=== PATIENT | female | born 1945 | race Caucasian/White ===

== ENCOUNTER 2017-08-29 22:01 | Emergency (ER) | payer MEDICARE, BC ==
[2017-08-29 22:21] VITALS: BP 163/91
--- NOTE | 2017-08-29 22:28 | EDM.PDOC ---
ED HPI GENERAL MEDICAL PROBLEM - General Chief Complaint: Neurological Problem Stated Complaint: APPROX 6 HOURS ALTERED MENTAL STATUS Time Seen by Provider: 08/29/17 22:05 Source of Information: Reports: Patient, Family History Limitations: Reports: Altered Mental Status - History of Present Illness INITIAL COMMENTS - FREE TEXT/NARRATIVE: This is a 71-year-old female. She comes tonight because she had an episode today starting around 3:30 PM of altered mental status. The story I believe starts on where she had an episode of feeling like there was something on the left side of her adventist area and she became somewhat sick with nausea and vomiting and vomited multiple times on and felt real bad and had a mild headache. She seemed to clear up though she was very weak on Thursday. Then today around 3:30 PM the daughter received a text message from her that was all jumbled and she couldn't understand it. The daughter lives next door so she went over to see her mother. When she got there the mother was not coherent though she was moving all 4 extremities. The daughter states she was not herself was very argumentative. According to the daughter she was disoriented to time to place. She thought she was in school and had been working all day but she is retired. Daughter noted that the patient's right pupil was dilated during this time but is back to normal. The daughter stated that she was not able to follow commands could not thermometer maker her fingers when asked to do so. But she was moving her hands and arms as she desired just could not follow commands. The daughter called the ambulance and they arrived but the patient refused to come to the ER by ambulance and refused to come to the ER period. Her blood pressure at that time was 140/86. Around 8:30 PM the patient began to act more her normal self and then was persuaded by her daughter to come to the ER. She walked into the ER without difficulty has no problems with her balance. The patient is conversational and is pleasant and she is cooperative and she is able to follow commands. With our conversation with the daughter at the bedside the patient still is not having complete comprehension of the conversation though she is markedly better according to the daughter than she was. The patient appears to be without distress and she does not remember this episode this afternoon. Patient's initial NIH score was 4. The patient takes a baby aspirin daily. Left Head Pain Score (Numeric/FACES): 1 - Related Data Allergies Allergy/AdvReac Type Severity Reaction Status Date / Time risedronate sodium Allergy Pain Verified 08/29/17 22:23 [From Actonel] Home Meds: Home Meds Allopurinol [Zyloprim] 0.5 tab PO DAILY 11/27/14 [History] Aspirin [Halfprin] 81 mg PO DAILY 11/27/14 [History] Calcium Carbonate/Vitamin D3 [Calcium 600-Vit D3 400 Tablet] 2 tab PO DAILY 11/08 [History] Levothyroxine 75 mcg PO DAILY 11/27/14 [History] Meloxicam [Mobic] 1 - 2 tab PO DAILY 11/27/14 [History] Multivitamin [Multi-Vitamin Daily] 1 tab PO DAILY 11/27/14 [History] Omeprazole 20 mg PO DAILY 11/27/14 [History] Potassium Chloride [Klor-Con 10] 10 meq PO DAILY 11/27/14 [History] Simvastatin 20 mg PO BEDTIME 11/27/14 [History] Triamterene/Hydrochlorothiazid [Triamterene-HCTZ 37.5-25 MG] 37.5 tab PO DAILY 11/27/14 [History] Ubidecarenone [Coenzyme Q10] 1 tab PO DAILY 11/27/14 [History] Past Medical History Cardiovascular History: Reports: High Cholesterol, Hypertension Respiratory History: Reports: None Gastrointestinal History: Reports: GERD Musculoskeletal History: Reports: Gout, Osteoarthritis Endocrine/Metabolic History: Reports: Hypothyroidism, Obesity/BMI 30+ - Past Surgical History GI Surgical History: Reports: Cholecystectomy, Colonoscopy Social & Family History - Tobacco Use Smoking Status *Q: Former Smoker (smoked 10 years when younger) Month Tobacco Last Used: 1978 Second Hand Smoke Exposure: No - Alcohol Use Days Per Week of Alcohol Use: 0 (occasional wine) Number of Drinks Per Day: 0 Total Drinks Per Week: 0 - Recreational Drug Use Recreational Drug Use: No Drug Use in Last 12 Months: No ED ROS GENERAL - Review of Systems Review Of Systems: See Below Constitutional: Denies: Fever, Chills HEENT: Denies: Ear Pain, Rhinitis, Sinus Problem, Throat Pain, Throat Swelling Respiratory: Denies: Shortness of Breath, Cough Cardiovascular: Denies: Chest Pain Endocrine: Reports: No Symptoms GI/Abdominal: Denies: Abdominal Pain, Diarrhea, Nausea, Vomiting : Reports: No Symptoms Musculoskeletal: Reports: No Symptoms Skin: Reports: No Symptoms Neurological: Reports: Confusion, Trouble Speaking. Denies: Dizziness, Headache , Numbness, Paresthesia Psychiatric: Reports: Agitation Hematologic/Lymphatic: Reports: No Symptoms ED EXAM, NEURO - Physical Exam Exam: See Below Exam Limited By: No Limitations General Appearance: Alert, WD/WN, No Apparent Distress Eye Exam: Bilateral Eye: Abnormal Pupil, Normal Inspection, PERRL Ears: Normal External Exam, Normal Canal, Normal TMs Nose: Normal Inspection Throat/Mouth: Normal Inspection, Normal Lips, Normal Voice, No Airway Compromise Head Exam: Normocephalic Neck: Supple, Full Range of Motion. No: Carotid Bruit Respiratory/Chest: No Respiratory Distress, Lungs Clear, Normal Breath Sounds Cardiovascular: Regular Rate, Rhythm, No Murmur GI/Abdominal: Soft, Non-Tender Neurological: Alert, Normal Mood/Affect, Normal Gait, Other (Patient appears to have a mild receptive aphasia where she has a difficult time understanding some things and following commands, she will finally get the chest of which one done and she will do it then but it takes her a moment or 2 to understand water trying to say, her neurologic exam seemed to improve as she was here to the point where she was acting almost normal according to the daughter, she still had some mild difficulty and tracking conversations and keeping up, at no time did she have any arm or leg weakness or any sensation deficits). No: Babinski, Difficulty Walking Back Exam: Full Range of Motion Extremities: Normal Inspection, Normal Range of Motion Psychiatric: Normal Affect, Normal Mood Skin Exam: Warm, Dry EKG INTERPRETATION EKG Date: 08/29/17 Time: 20:23 EKG Interpretation Comments: EKG shows a normal sinus rhythm with no acute ST or T-wave changes. There are considered to be Q waves in the anterior lateral leads suggesting a possible old [place] in the past there is no ischemia noted. Course - Vital Signs Last Recorded V/S: Last Vital Signs Temp 97.5 F 08/29/17 22:07 Pulse 72 08/29/17 22:07 Resp 14 08/29/17 22:07 BP 163/91 H 08/29/17 22:07 Pulse Ox 97 08/29/17 22:07 - Orders/Labs/Meds Orders: Active Orders 24 hr Category Date Time Status NIH Stroke Scale [RC] ASDIRECTED Care 08/29/17 22:29 Active Chest 2V [CR] Stat Exams 08/29/17 22:30 Taken Head wo Cont [CT] Stat Exams 08/29/17 22:28 Taken Labs: Laboratory Tests 08/29/17 08/29/17 08/29/17 Range/Units 22:17 22:19 22:19 WBC 7.17 (3.98-10.04) K/mm3 RBC 4.58 (3.98-5.22) M/mm3 Hgb 14.4 (11.2-15.7) gm/L Hct 43.6 (34.1-44.9) % MCV 95.2 H (79.4-94.8) fl MCH 31.4 (25.6-32.2) pg MCHC 33.0 (32.2-35.5) g/dl RDW Std Deviation 45.8 (36.4-46.3) fL Plt Count 142 L (182-369) K/mm3 MPV 13.2 H (9.4-12.3) fl Neut % (Auto) 59.8 (34.0-71.1) % Lymph % (Auto) 26.1 (19.3-51.7) % [place] % (Auto) 12.0 (4.7-12.5) % Eos % (Auto) 1.4 (0.7-5.8) Baso % (Auto) 0.6 (0.1-1.2) % Neut # (Auto) 4.29 (1.56-6.13) K/mm3 Lymph # (Auto) 1.87 (1.18-3.74) K/mm3 [place] # (Auto) 0.86 H (0.24-0.36) K/mm3 Eos # (Auto) 0.10 (0.04-0.36) K/mm3 Baso # (Auto) 0.04 (0.01-0.08) K/mm3 PT 11.3 (8.0-13.0) SECONDS INR 1.03 Sodium (136-145) mEq/L Potassium (3.5-5.1) mEq/L Chloride (98-107) mEq/L Carbon Dioxide (21-32) mEq/L Anion Gap (5-15) BUN (7-18) mg/dL Creatinine (0.55-1.02) mg/dL Est Cr Clr Drug Dosing mL/min Estimated GFR (MDRD) (>60) mL/min BUN/Creatinine Ratio (14-18) Glucose (83-115) mg/dL POC Glucose 98 (83-110) mg/dL Calcium (8.5-10.1) mg/dL Total Bilirubin (0.2-1.0) mg/dL AST (15-37) U/L ALT (14-59) U/L Alkaline Phosphatase (46-116) U/L Troponin I (0.00-0.056) ng/mL Total Protein (6.4-8.2) g/dl Albumin (3.4-5.0) g/dl Globulin gm/dL Albumin/Globulin Ratio (1-2) Urine Color (Yellow) Urine Appearance (Clear) Urine pH (5.0-8.0) Ur Specific [place] (1.005-1.030) Urine Protein (Negative) Urine Glucose (UA) (Negative) Urine Ketones (Negative) Urine Occult Blood (Negative) Urine Nitrite (Negative) Urine Bilirubin (Negative) Urine Urobilinogen (0.2-1.0) Ur Leukocyte Esterase (Negative) Urine RBC (0-5) /hpf Urine WBC (0-5) /hpf Ur Epithelial Cells (0-5) /hpf Urine Bacteria (FEW) /hpf Hyaline Casts (0-5) /lpf Urine Mucus (FEW) /hpf 08/29/17 08/29/17 Range/Units 22:19 23:58 WBC (3.98-10.04) K/mm3 RBC (3.98-5.22) M/mm3 Hgb (11.2-15.7) gm/L Hct (34.1-44.9) % MCV (79.4-94.8) fl MCH (25.6-32.2) pg MCHC (32.2-35.5) g/dl RDW Std Deviation (36.4-46.3) fL Plt Count (182-369) K/mm3 MPV (9.4-12.3) fl Neut % (Auto) (34.0-71.1) % Lymph % (Auto) (19.3-51.7) % [place] % (Auto) (4.7-12.5) % Eos % (Auto) (0.7-5.8) Baso % (Auto) (0.1-1.2) % Neut # (Auto) (1.56-6.13) K/mm3 Lymph # (Auto) (1.18-3.74) K/mm3 [place] # (Auto) (0.24-0.36) K/mm3 Eos # (Auto) (0.04-0.36) K/mm3 Baso # (Auto) (0.01-0.08) K/mm3 PT (8.0-13.0) SECONDS INR Sodium 140 (136-145) mEq/L Potassium 3.1 L (3.5-5.1) mEq/L Chloride 102 (98-107) mEq/L Carbon Dioxide 27 (21-32) mEq/L Anion Gap 14.1 (5-15) BUN 24 H (7-18) mg/dL Creatinine 1.2 H (0.55-1.02) mg/dL Est Cr Clr Drug Dosing 31.98 mL/min Estimated GFR (MDRD) 44 (>60) mL/min BUN/Creatinine Ratio 20.0 H (14-18) Glucose 101 (83-115) mg/dL POC Glucose (83-110) mg/dL Calcium 10.7 H (8.5-10.1) mg/dL Total Bilirubin 0.6 (0.2-1.0) mg/dL AST 21 (15-37) U/L ALT < 6 L (14-59) U/L Alkaline Phosphatase 96 (46-116) U/L Troponin I < 0.017 (0.00-0.056) ng/mL Total Protein 8.4 H (6.4-8.2) g/dl Albumin 3.8 (3.4-5.0) g/dl Globulin 4.6 gm/dL Albumin/Globulin Ratio 0.8 L (1-2) Urine Color Yellow (Yellow) Urine Appearance Clear (Clear) Urine pH 6.0 (5.0-8.0) Ur Specific [place] 1.025 (1.005-1.030) Urine Protein Negative (Negative) Urine Glucose (UA) Negative (Negative) Urine Ketones 1+ H (Negative) Urine Occult Blood Negative (Negative) Urine Nitrite Negative (Negative) Urine Bilirubin Negative (Negative) Urine Urobilinogen 0.2 (0.2-1.0) Ur Leukocyte Esterase Trace H (Negative) Urine RBC 0-5 (0-5) /hpf Urine WBC 5-10 H (0-5) /hpf Ur Epithelial Cells 0-5 (0-5) /hpf Urine Bacteria Few (FEW) /hpf Hyaline Casts 0-5 (0-5) /lpf Urine Mucus Moderate H (FEW) /hpf Meds: Medications Discontinued Medications Generic Name Dose Route Start Last Admin Trade Name Fina PRN Reason Stop Dose Admin Aspirin 81 mg 08/29/17 23:34 08/29/17 23:38 Aspirin PO 08/29/17 23:35 81 mg ONETIME ONE Administration Clopidogrel Bisulfate 75 mg 08/29/17 23:30 08/29/17 23:38 Plavix PO 08/29/17 23:31 75 mg ONETIME ONE Administration - Radiology Interpretation Free Text/Narrative:: CT scan of the head did not show any acute stroke or hemorrhage. It did show chronic small vessel disease.C - Re-Assessments/Exams Free Text/Narrative Re-Assessment/Exam: 08/29/17 23:40 Spoke to the family and the patient regarding the findings and her need to go to [facility] for additional workup and treatment. In the meantime we'll give her Plavix 75 mg and an additional baby aspirin as per Dr. Silva neurologist at [facility]. The family did request to go to [facility]. 08/29/17 23:49 Recheck of the patient reveals she still has a mild receptive aphasia. She is able to verbalize without difficulty and has clear speech. She moves all 4 extremities without difficulty. It appears that the only residual is that receptive aphasia thus giving her a diagnosis of a cerebrovascular accident. Please note that prior to leaving the ER she was almost back to normal according to her daughter who was been with her this entire time. The patient still has a slight difficulty in tracking conversation and keeping up with understanding. When I told her it would be sending her to [facility] in [place] and asked her if she understood why she gave me a blank look but is I explained to her her symptoms and that we thought she had a stroke she then put that together to understand asked why she was going to [facility] because they could take care of her. Departure - Departure Time of Disposition: 23:49 Disposition: DC/Tfer to Acute Hospital 02 Condition: Fair Clinical Impression: Receptive aphasia Cerebrovascular accident Qualifiers: CVA mechanism: occlusion Precerebral and cerebral artery: unspecified cerebral artery Qualified Code(s): I63.50 - Cerebral infarction due to unspecified occlusion or stenosis of unspecified cerebral artery - Discharge Information Forms: ED Department Discharge Additional Instructions: I spoke to the neurologist Dr. Silva and the hospitalist Dr. Goldman and they will accept the patient in transport to [facility] in [place] for further evaluation and treatment. ED Communication - ED Communication Date/Time Date: 08/29/17 Time Called: 23:47 - Discussed Case With (1) Discussed Case With (1): Admitting Provider Person/s Notified (1): Dr. Silva (Accepts in transport to [facility]) Person/s Notified (2): Dr. Goldman (Accepts in transport to [facility]) - My Orders Last 24 Hours: My Active Orders 08/29/17 22:28 Head wo Cont [CT] Stat 08/29/17 22:29 NIH Stroke Scale [RC] ASDIRECTED 08/29/17 22:30 Chest 2V [CR] Stat - Assessment/Plan Last 24 Hours: My Active Orders 08/29/17 22:28 Head wo Cont [CT] Stat 08/29/17 22:29 NIH Stroke Scale [RC] ASDIRECTED 08/29/17 22:30 Chest 2V [CR] Stat
[2017-08-29] MEDS ORDERED: Clopidogrel 75 MG Tab PO ONE (23:30)
[2017-08-29] MEDS ORDERED: Aspirin 81 MG Tab.Chew PO ONE (23:34)
--- NOTE | 2017-08-30 08:58 | CR ---
Chest: Two views of the chest were obtained. Comparison: No prior chest x-ray. Heart size is normal. Tortuous thoracic aorta is seen. Small hiatal hernia appears to be present. Lungs are clear. Compression deformities are noted within the mid and lower thoracic spine. Scattered degenerative change is noted. Osteopenia is present. Surgical clips are noted from prior cholecystectomy. Impression: 1. Findings as noted above. Nothing acute is seen. Diagnostic code #2
--- NOTE | 2017-08-30 08:58 | CT ---
Head CT Technique: Multiple axial sections through the brain were obtained. Intravenous contrast was not utilized. Comparison: No previous intracranial imaging. Findings: Ventricles along the basal cisterns and sulci over the convexities are mildly prominent. Diminished density is noted within portions of the periventricular and subcortical white matter which is compatible with small vessel ischemic demyelination change. No other abnormal parenchymal densities are seen. No evidence of intracranial hemorrhage. No midline shift or mass effect is seen. Bone window settings were reviewed which show the visualized sinuses to appear clear. No acute calvarial abnormality is identified. Impression: 1. Mild senescent change as noted above. No acute intracranial abnormality is identified on noncontrast head CT study. Diagnostic code #2 I agree with preliminary report issued by [facility] ([facility] report finalized on 08/30/17, 12:12 AM Central Time)
== END 2017-08-30 00:27 ==
LOC: JD.ED 22:01
DX: I63.50 Cerebral infarction due to unspecified occlusion or stenosis of unspecified cerebral artery (principal); F80.2 Mixed receptive-expressive language disorder; E78.00 Pure hypercholesterolemia, unspecified; I10 Essential (primary) hypertension; K21.9 Gastro-esophageal reflux disease without esophagitis; E03.9 Hypothyroidism, unspecified; Z87.891 Personal history of nicotine dependence; Z88.8 Allergy status to other drugs, medicaments and biological substances; Z79.82 Long term (current) use of aspirin; Z79.899 Other long term (current) drug therapy
CPT/HCPCS: 36415; 70450; 71046; 80053; 81001; 82962; 84484; 85025; 85610; 93005; 99285; A9270

== ENCOUNTER 2019-09-22 12:46 | Emergency (ER) | payer MEDICARE, BC ==
[2019-09-22] MEDS ORDERED: Sodium Chloride 0.9% 10 ML Syringe FLUSH PRN (13:21)
[2019-09-22 13:22] VITALS: BP 105/56; PULSE 77
[2019-09-22] MEDS ORDERED: Sodium Chloride 0.9% 1,000 ML IV SCH (13:30)
--- NOTE | 2019-09-22 13:59 | CT ---
Head CT Technique: Multiple axial sections through the brain were obtained. Intravenous contrast was not utilized. Comparison: Prior head CT study of 08/29/17. Findings: Ventricles along with basal cisterns and sulci over the convexities are mildly prominent. Areas of diminished density are noted within the periventricular and subcortical white matter which is compatible with small vessel ischemic demyelination change. Findings are fairly stable from previous exam. No other abnormal parenchymal densities are seen. No evidence of intracranial hemorrhage. No midline shift or mass-effect is seen. Visualized paranasal sinuses are clear. Visualized mastoid sinuses are clear. No acute calvarial abnormality is appreciated. Impression: 1. Senescent change as noted above. 2. No acute intracranial abnormality is identified. Diagnostic code #1 This report was dictated in [place] Standard Time
--- NOTE | 2019-09-22 15:01 | EDM.PDOC ---
ED HPI GENERAL MEDICAL PROBLEM - General Chief Complaint: Neuro Symptoms/Deficits Stated Complaint: STROKE SYMPTOMS,DIZZY/WEAKNESS Time Seen by Provider: 09/22/19 13:04 Source of Information: Reports: Patient, Family History Limitations: Reports: No Limitations - History of Present Illness INITIAL COMMENTS - FREE TEXT/NARRATIVE: The patient presents with stroke like symptoms. She was at work at [employer] and sat down to eat. Co-workers were trying to talk to her but she was not responding. She was drooling. She is dizzy and seeing lines. She had a hard time swallowing. She has facial droop on the left. She has a history of breast cancer. She has chemo and needs fluids after sometimes. She has no headache, fever, chills, cough, chest pain, shortness of breath, abdominal pain , nausea or vomiting. Onset: Sudden Duration: Minutes: Improves with: Reports: None Worsens with: Reports: None Associated Symptoms: Reports: No Other Symptoms - Related Data Allergies Allergy/AdvReac Type Severity Reaction Status Date / Time risedronate sodium Allergy Pain Verified 08/29/17 22:23 [From Actonel] Home Meds: Home Meds Aspirin [Halfprin] 81 mg PO DAILY 11/27/14 [History] Calcium Carbonate/Vitamin D3 [Calcium 600-Vit D3 400 Tablet] 2 tab PO DAILY 11/08 [History] Levothyroxine 75 mcg PO DAILY 11/27/14 [History] Meloxicam [Mobic] 1 - 2 tab PO DAILY 11/27/14 [History] Multivitamin [Multi-Vitamin Daily] 1 tab PO DAILY 11/27/14 [History] Omeprazole 20 mg PO DAILY 11/27/14 [History] Potassium Chloride [Klor-Con 10] 10 meq PO DAILY 11/27/14 [History] Simvastatin 20 mg PO BEDTIME 11/27/14 [History] Triamterene/Hydrochlorothiazid [Triamterene-HCTZ 37.5-25 MG] 37.5 tab PO DAILY 11/27/14 [History] Ubidecarenone [Coenzyme Q10] 1 tab PO DAILY 11/27/14 [History] allopurinoL [Zyloprim] 0.5 tab PO DAILY 11/27/14 [History] Past Medical History Cardiovascular History: Reports: High Cholesterol, Hypertension Respiratory History: Reports: None Gastrointestinal History: Reports: GERD Musculoskeletal History: Reports: Gout, Osteoarthritis Neurological History: Reports: CVA Other Neuro History: Stroke 2 years ago Endocrine/Metabolic History: Reports: Hypothyroidism, Obesity/BMI 30+ - Past Surgical History GI Surgical History: Reports: Cholecystectomy, Colonoscopy Social & Family History - Family History Cardiac: Reports: Aneurysm, Heart Failure - Tobacco Use Smoking Status *Q: Never Smoker - Caffeine Use Caffeine Use: Reports: None - Recreational Drug Use Recreational Drug Use: No ED ROS GENERAL - Review of Systems Review Of Systems: See Below Constitutional: Reports: No Symptoms HEENT: Reports: No Symptoms Respiratory: Reports: No Symptoms Cardiovascular: Reports: Lightheadedness. Denies: Chest Pain Endocrine: Reports: No Symptoms GI/Abdominal: Reports: No Symptoms : Reports: No Symptoms Musculoskeletal: Reports: No Symptoms ED EXAM, NEURO - Physical Exam Exam: See Below Exam Limited By: No Limitations General Appearance: Alert, No Apparent Distress Ears: Normal External Exam Nose: Normal Inspection Head Exam: Atraumatic, Normocephalic Neck: Normal Inspection Respiratory/Chest: No Respiratory Distress, Lungs Clear, Normal Breath Sounds Cardiovascular: Regular Rate, Rhythm, No Edema, No Murmur GI/Abdominal: Soft, Non-Tender, No Organomegaly, No Mass Neurological: Alert, No Motor/Sensory Deficits, Oriented x 3 EKG INTERPRETATION EKG Date: 09/22/19 Time: 13:41 Rhythm: NSR Rate (Beats/Min): 76 [place]: Normal P-Wave: Present QRS: Normal ST-T: Normal QT: Normal Course - Vital Signs Last Recorded V/S: Last Vital Signs Temp 98.1 F 09/22/19 13:01 Pulse 77 09/22/19 13:01 Resp 16 09/22/19 13:01 BP 105/56 L 09/22/19 13:01 Pulse Ox 100 09/22/19 13:01 - Orders/Labs/Meds Orders: Active Orders 24 hr Category Date Time Status Cardiac Monitoring [RC] . DIRECTED Care 09/22/19 13:21 Active EKG Documentation Completion [RC] STAT Care 09/22/19 13:21 Active Peripheral IV Care [RC] . DIRECTED Care 09/22/19 13:21 Active Sodium Chloride 0.9% [Normal Saline] 1,000 ml Med 09/22/19 13:30 Active IV .BOLUS Sodium Chloride 0.9% [Saline Flush] Med 09/22/19 13:21 Active 10 ml FLUSH ASDIRECTED PRN Peripheral IV Insertion Adult [OM.PC] Stat Oth 09/22/19 13:21 Ordered Medication Orders Sodium Chloride (Normal Saline) 1,000 mls @ 1,000 mls/hr IV .BOLUS MASSIEL Last Admin: 09/22/19 14:12 Dose: 1,000 mls/hr Sodium Chloride (Saline Flush) 10 ml FLUSH ASDIRECTED PRN PRN Reason: Keep Vein Open Last Admin: 09/22/19 14:05 Dose: 10 ml Labs: Laboratory Tests 09/22/19 09/22/19 09/22/19 Range/Units 13:35 13:35 13:35 WBC 6.87 (3.98-10.04) K/mm3 RBC 3.73 L (3.98-5.22) M/mm3 Hgb 11.7 D (11.2-15.7) gm/dl Hct 37.4 (34.1-44.9) % MCV 100.3 H D (79.4-94.8) fl MCH 31.4 (25.6-32.2) pg MCHC 31.3 L (32.2-35.5) g/dl RDW Std Deviation 52.3 H (36.4-46.3) fL Plt Count 142 L (182-369) K/mm3 MPV 12.0 (9.4-12.3) fl Neut % (Auto) 74.0 H (34.0-71.1) % Lymph % (Auto) 14.8 L (19.3-51.7) % Cotton % (Auto) 9.5 (4.7-12.5) % Eos % (Auto) 1.3 (0.7-5.8) Baso % (Auto) 0.3 (0.1-1.2) % Neut # (Auto) 5.08 (1.56-6.13) K/mm3 Lymph # (Auto) 1.02 L (1.18-3.74) K/mm3 Cotton # (Auto) 0.65 H (0.24-0.36) K/mm3 Eos # (Auto) 0.09 (0.04-0.36) K/mm3 Baso # (Auto) 0.02 (0.01-0.08) K/mm3 PT 11.4 (9.7-12.0) SECONDS INR 1.05 APTT 22 (22-31) SECONDS Sodium 142 (136-145) mEq/L Potassium 4.8 D (3.5-5.1) mEq/L Chloride 107 (98-107) mEq/L Carbon Dioxide 25 (21-32) mEq/L Anion Gap 14.8 (5-15) BUN 47 H (7-18) mg/dL Creatinine 1.8 H (0.55-1.02) mg/dL Est Cr Clr Drug Dosing 20.69 mL/min Estimated GFR (MDRD) 28 (>60) mL/min BUN/Creatinine Ratio 26.1 H (14-18) Glucose 93 (83-115) mg/dL Calcium 9.3 (8.5-10.1) mg/dL Total Bilirubin 0.5 (0.2-1.0) mg/dL AST 21 (15-37) U/L ALT 14 (14-59) U/L Alkaline Phosphatase 59 (46-116) U/L Troponin I < 0.017 (0.00-0.056) ng/mL Total Protein 7.3 (6.4-8.2) g/dl Albumin 3.5 (3.4-5.0) g/dl Globulin 3.8 gm/dL Albumin/Globulin Ratio 0.9 L (1-2) Meds: Medications Generic Name Dose Route Start Last Admin Trade Name Freq PRN Reason Stop Dose Admin Sodium Chloride 1,000 mls @ 1,000 mls/hr 09/22/19 13:30 09/22/19 14:12 Normal Saline IV 1,000 mls/hr .BOLUS MASSIEL Administration Sodium Chloride 10 ml 09/22/19 13:21 09/22/19 14:05 Saline Flush FLUSH 10 ml ASDIRECTED PRN Administration Keep Vein Open - Re-Assessments/Exams Free Text/Narrative Re-Assessment/Exam: 09/22/19 15:24 I ordered an IV NS 1L bolus, EKG, CT of her head and labs. Her EKG shows a NSR with no acute changes. Her BP is low in the 80s. Her CBC looks good. Her creatinine is elevated at 1.8. She normally runs around 1.3. Her troponin is negative. She feels better after the fluids. I feel she was hypotensive. Departure - Departure Time of Disposition: 15:30 Disposition: Home, Self-Care 01 Condition: Good Clinical Impression: Renal insufficiency Hypotension Qualifiers: Hypotension type: other hypotension type Qualified Code(s): I95.89 - Other hypotension - Discharge Information *PRESCRIPTION DRUG MONITORING PROGRAM REVIEWED*: Not Applicable *COPY OF PRESCRIPTION DRUG MONITORING REPORT IN PATIENT SABINE: Not Applicable Referrals: Carolina Cortes MD [Primary Care Provider] - Forms: ED Department Discharge Additional Instructions: Drink plenty of fluids. Take your medication as prescribed. Please return if you are worse. Sepsis Event Note - Evaluation Sepsis Screening Result: No Definite Risk - Focused Exam Vital Signs: Vital Signs Temp Pulse Resp BP Pulse Ox 09/22/19 13:01 98.1 F 77 16 105/56 L 100 Date Exam was Performed: 09/22/19 Time Exam was Performed: 15:13 - My Orders Last 24 Hours: My Active Orders 09/22/19 13:21 Cardiac Monitoring [RC] . DIRECTED EKG Documentation Completion [RC] STAT Peripheral IV Care [RC] . DIRECTED Sodium Chloride 0.9% [Saline Flush] 10 ml FLUSH ASDIRECTED PRN Peripheral IV Insertion Adult [OM.PC] Stat 09/22/19 13:30 Sodium Chloride 0.9% [Normal Saline] 1,000 ml IV .BOLUS - Assessment/Plan Last 24 Hours: My Active Orders 09/22/19 13:21 Cardiac Monitoring [RC] . DIRECTED EKG Documentation Completion [RC] STAT Peripheral IV Care [RC] . DIRECTED Sodium Chloride 0.9% [Saline Flush] 10 ml FLUSH ASDIRECTED PRN Peripheral IV Insertion Adult [OM.PC] Stat 09/22/19 13:30 Sodium Chloride 0.9% [Normal Saline] 1,000 ml IV .BOLUS
== END 2019-09-22 16:05 | disposition home or self-care (01) ==
LOC: JD.ED 12:46
DX: I95.89 Other hypotension (principal); N28.9 Disorder of kidney and ureter, unspecified; I10 Essential (primary) hypertension; E78.00 Pure hypercholesterolemia, unspecified; K21.9 Gastro-esophageal reflux disease without esophagitis; M10.9 Gout, unspecified; E66.9 Obesity, unspecified; Z68.41 Body mass index [BMI] 40.0-44.9, adult; Z86.73 Personal history of transient ischemic attack (TIA), and cerebral infarction without residual deficits; E03.9 Hypothyroidism, unspecified; Z88.8 Allergy status to other drugs, medicaments and biological substances; Z79.82 Long term (current) use of aspirin; Z79.899 Other long term (current) drug therapy
CPT/HCPCS: 36415; 36556; 70450; 80053; 84484; 85025; 85610; 85730; 93005; 96360; 99284; J1642; J7030; 93010